=== PATIENT | male | born 1975 | race Caucasian/White ===

== ENCOUNTER 2017-08-09 16:39 | Emergency (ER) | payer MEDICAID ==
[~2017-08-09] VITALS: Ht 172.7 cm; Wt 115.7 kg
[2017-08-09 17:10] VITALS: BP_SYST 147
[2017-08-09] MEDS ORDERED: LIDOCAINE/EPI 2% 1:100000 20 ML VIAL INJ ONE (18:45)
[2017-08-09] MEDS ORDERED: IBUPROFEN 800 MG TABLET PO ONE (18:45)
[2017-08-09] MEDS ORDERED: SULFAMETHOXAZOLE/TRIMETHOPR DS 1 TABLET PO ONE (18:45)
[2017-08-09] MEDS ORDERED: CEPHALEXIN 500 MG CAPSULE PO ONE (18:45)
[2017-08-09 19:39] VITALS: BP_SYST 130
== END 2017-08-09 19:39 | disposition home or self-care (01) ==
LOC: SED 16:39
DX: L02.212 Cutaneous abscess of back [any part, except buttock and flank] (principal); G43.909 Migraine, unspecified, not intractable, without status migrainosus; R03.0 Elevated blood-pressure reading, without diagnosis of hypertension
CPT/HCPCS: 82962; 99284

== ENCOUNTER 2017-08-11 17:40 | Emergency (ER) | payer MEDICAID ==
[~2017-08-11] VITALS: Ht 172.7 cm; Wt 115.7 kg
[2017-08-11 17:53] VITALS: BP_SYST 130
[2017-08-11 20:45] VITALS: BP_SYST 127
== END 2017-08-11 20:45 | disposition home or self-care (01) ==
LOC: SED 17:40
DX: Z48.01 Encounter for change or removal of surgical wound dressing (principal); G43.901 Migraine, unspecified, not intractable, with status migrainosus
CPT/HCPCS: 99282

== ENCOUNTER 2017-08-13 18:05 | Emergency (ER) | payer MEDICAID ==
[~2017-08-13] VITALS: Ht 172.7 cm; Wt 115.7 kg
[2017-08-13 18:13] VITALS: BP_SYST 129
--- NOTE | 2017-08-13 18:17 | NUR ---
Patient triaged and placed in waiting room. VSS and patient appears in no acute distress at this time. Accompanied by SELF, awaiting available bed, and MD notified of need for MSE.
--- NOTE | 2017-08-13 18:44 | NUR ---
BROUGHT BACK TO BED #7 AND REPORT GIVEN TO ERROL
--- NOTE | 2017-08-13 18:50 | NUR ---
Dr Kline at bedside to evaluate patient.
--- NOTE | 2017-08-13 19:00 | NUR ---
Patient arrived to ED a/o x 4 for wound recheck. Patient presents with wounds to left side of neck and left flank. Patient had packing in place upon arrival which was placed x 2 days ago. No active drainage or swelling noted. No redness or tenderness noted. Will continue to monitor.
[2017-08-13 19:20] VITALS: BP_SYST 129
--- NOTE | 2017-08-13 19:20 | NUR ---
Patient given written and verbal discharge instructions and verbalizes understanding. ER MD discussed with patient the results and treatment provided. Patient in stable condition. ID arm band removed. No Rx given. Patient educated on pain management and to follow up with PMD. Pain Scale 0/10. Opportunity for questions provided and answered.
== END 2017-08-13 19:20 | disposition home or self-care (01) ==
LOC: SED 18:05
DX: Z48.01 Encounter for change or removal of surgical wound dressing (principal); G43.901 Migraine, unspecified, not intractable, with status migrainosus; R03.0 Elevated blood-pressure reading, without diagnosis of hypertension
CPT/HCPCS: 99281